=== PATIENT | male | born 1955 | race Caucasian/White ===

== ENCOUNTER 2023-10-21 18:11 | Emergency (ER) | payer MEDICARE ==
[~2023-10-21] VITALS: Ht 190.5 cm; Wt 105.2 kg
[2023-10-21 19:02] VITALS: BP_SYST 133; PULSE 99; RESP 20; TEMP 97.7; O2SAT 99
[2023-10-21 19:21] LABS: BILIRUBIN,URINE NEGATIVE (NEGATIVE); BLOOD, URINE 2+ (NEGATIVE); CLARITY/URINE SL CLOUDY (CLEAR); COLOR,URINE YELLOW (YELLOW); GLUCOSE,URINE NEGATIVE (NEGATIVE); KETONES,URINE TRACE (NEGATIVE); LEUKOCYTE ESTERASE ,URINE 3+ (NEGATIVE); NITRITE, URINE NEGATIVE (NEGATIVE); PH,URINE 7.5 (5.0-8.0); PROTEIN URINE TRACE (NEGATIVE)
[2023-10-21 19:22] LABS: BACTERIA,URINE MANY /HPF (None Seen); RBC,URINE 0-3 /HPF (0-3); WBC,URINE >100 /HPF (0-3)
[2023-10-21 19:23] LABS: MUCUS,URINE None Seen /LPF (None Seen)
[2023-10-21 20:28] LABS: HEMATOCRIT 50.5 % (36-54); MEAN CORPUSCULAR HEMOGLOBIN 31 pg (27-31); MEAN CORPUSCULAR HGB CONC 34 % (32-36); MEAN CORPUSCULAR VOLUME 91 fL (79.0-98.0); PLATELET COUNT (AUTO) 126 K/uL (130-430); RED BLOOD CELL COUNT(AUTO) 5.53 MIL/uL (4.2-6.2); RED CELL DISTRIBUTION WIDTH 13.2 % (9.0-15.0); WHITE BLOOD COUNT (AUTO) 22.7 K/uL (4.8-10.8)
[2023-10-21 20:39] LABS: CALCIUM 10.7 mg/dL (8.4-11.0); CREATININE 1.09 mg/dL (0.55-1.30); POTASSIUM 3.9 mmol/L (3.5-5.1)
[2023-10-21 20:42] LABS: BAND % (MANUAL) 5 % (0-6); BASOPHILS % (MANUAL) 0 % (0-2); EOSINOPHILS % (MANUAL) 0 % (0-7); LYMPHOCYTES % (MANUAL) 6 % (20-46); MONOCYTES % (MANUAL) 7 % (0-11); PLATELET ESTIMATE DECREASED (ADEQUATE)
[2023-10-21] MEDS ORDERED: cefTRIAXone 2 GM VIAL ONE (21:58)
[2023-10-21] MEDS ORDERED: NACL 0.9% 1,000 ML IV ONE (22:00)
[2023-10-22] MEDS ORDERED: CIPR500T5 PO (00:34)
[2023-10-22] MEDS ORDERED: FAMOTIDINE 20 MG TABLET PO ONE (02:15)
[2023-10-22 02:38] VITALS: BP_SYST 139; PULSE 99; RESP 20; TEMP 97.7; O2SAT 99
== END 2023-10-22 02:38 | disposition short-term general hospital (02) ==
LOC: SED 18:11
DX: N39.0 Urinary tract infection, site not specified (principal); R33.9 Retention of urine, unspecified; R31.9 Hematuria, unspecified; F17.210 Nicotine dependence, cigarettes, uncomplicated; Z79.899 Other long term (current) drug therapy
CPT/HCPCS: 99285; 74176; 96365; 85027; 80048; 81001; 85007; 87040; 87086; 36415; 76376; 83605; 81000; 81015; J0696